=== PATIENT | male | born 1935 ===

== ENCOUNTER 2017-09-23 07:52 | Day surgery (SDC) | payer MEDICARE ==
[~2017-09-23] VITALS: Ht 170.2 cm; Wt 55.1 kg
[~2017-09-23 07:52] MED LIST: ASPI81EC; URSODIOL500 MG
[2017-09-23] MEDS ORDERED: PANT40 PO (08:45)
== END 2017-09-23 10:04 | disposition home or self-care (01) ==
LOC: ORSCSDS 07:52
PROVIDERS: Surgery
PROC: 0DBN8ZX Excision of Sigmoid Colon, Via Natural or Artificial Opening Endoscopic, Diagnostic (ICD-10-PCS; principal; 2017-09-23 09:15)
DX: Z12.11 Encounter for screening for malignant neoplasm of colon (principal); K63.5 Polyp of colon; I10 Essential (primary) hypertension; Z86.010 Personal history of colon polyps; I25.10 Atherosclerotic heart disease of native coronary artery without angina pectoris; I71.4 Abdominal aortic aneurysm, without rupture; Z79.899 Other long term (current) drug therapy
CPT/HCPCS: 88305; J7120